=== PATIENT | female | born 1995 | race Caucasian/White ===

== ENCOUNTER 2017-02-12 18:49 | Emergency (ER) | payer OTHER ==
[~2017-02-12] VITALS: Ht 157.5 cm; Wt 65.8 kg
[2017-02-12 18:49] VITALS: BP 112/66
[2017-02-12] MEDS ORDERED: PREN1PAK PO (19:21)
[2017-02-12 22:21] LABS: BASO % 0.5 % (0.0-1.0); EOS % 0.9 % (0.0-3.0); LARGE UNSTAINED CELL # 0.1 K/mm3 (0.0-0.4); LYMPH # 2.1 K/mm3 (1.5-6.5); LYMPH % 40.7 % (24.0-44.0); MEAN CORPUSCULAR HGB CONC 33.8 g/dl (32.0-36.5); MEAN CORPUSCULAR VOLUME 82.8 fl (80.0-96.0); MONO # 0.2 K/mm3 (0.0-0.8); MONO % 3.6 % (0.0-5.0); NEUTROPHILS # 2.7 K/mm3 (1.8-7.7); NEUTROPHILS % 52.3 % (36.0-66.0); PLATELET COUNT, AUTOMATED 236 k/mm3 (150-450); RED CELL DISTRIBUTION WIDTH 12.7 % (11.5-14.5); WHITE BLOOD COUNT 5.1 K/mm3 (4.0-10.0)
--- NOTE | 2017-02-12 23:40 | REPUSA ---
CLINICAL HISTORY: Spotting. TECHNIQUE: Transabdominal and endovaginal ultrasound of the pelvis was performed. FINDINGS: The uterus is anteverted. Gestational sac measures 0.56 cm mean diameter, corresponding to gestational age of 5 weeks and 2 day s. Yolk sac is seen. There is no pole or heart beat. Both ovaries are identified without adnexal mass or pelvic fluid collection. IMPRESSION: Findings most compatible with early IUP without pole or heart beat. Follow up stud y is recommended in 4-7 days.
== END 2017-02-13 00:16 | disposition home or self-care (01) ==
LOC: M ED 18:49
DX: O20.0 Threatened abortion (principal); Z3A.01 Less than 8 weeks gestation of pregnancy

== ENCOUNTER 2017-12-09 05:14 | Inpatient (IN) | payer OTHER ==
[2017-12-09] MEDS: BICITRA 30ML SOLN UDC PO (06:00)
[2017-12-09] MEDS: LR 1,000 ML IV ×2 (06:00→08:39)
[2017-12-09 06:11] LABS: HEMATOCRIT 32.6 % (36.0-47.0); HEMOGLOBIN 9.9 g/dl (12.0-15.5); MEAN CORPUSCULAR HEMOGLOBIN 21.3 pg (27.0-33.0); MEAN CORPUSCULAR HGB CONC 30.4 g/dl (32.0-36.5); MEAN CORPUSCULAR VOLUME 70.3 fl (80.0-96.0); PLATELET COUNT, AUTOMATED 178 10^3/uL (150-450); RED BLOOD COUNT 4.64 10^6/uL (4.00-5.40); RED CELL DISTRIBUTION WIDTH 16.4 % (11.5-14.5); WHITE BLOOD COUNT 9.8 10^3/uL (4.0-10.0)
[2017-12-09] MEDS ORDERED: OXYTOCIN INJ 10 UNITS/ML VIAL (J2590) As Ordered ×2 (07:10)
[2017-12-09] MEDS ORDERED: MORPHINE PRES-FREE INJ 10 MG/10 ML VIAL (J2274) As Ordered (07:12)
[2017-12-09] MEDS ORDERED: ATROPINE SULF 0.4 MG/ML 1ML VIAL (J0461) As Ordered (07:50)
[2017-12-09] MEDS ORDERED: ONDANSETRON 4MG/2ML VIAL (J2405) As Ordered (07:56)
[2017-12-09] MEDS ORDERED: ePHEDrine SULFATE 25 MG/5 ML(5MG/ML) SYRINGE As Ordered (07:56)
[2017-12-09] MEDS ORDERED: PHENYLephrine HCL 500 MCG/5 ML (100MCG/ML) SYRINGE (J2370) As Ordered (07:58)
[2017-12-09] MEDS ORDERED: KETOROLAC 60 MG/2 ML VIAL (J1885) As Ordered (08:17)
[2017-12-09] MEDS ORDERED: ONDANSETRON 4MG/2ML VIAL (J2405) IV ×2 (08:45→09:15)
[2017-12-09] MEDS ORDERED: PROMETHAZINE 25 MG TAB PO (08:45)
[2017-12-09] MEDS ORDERED: PERCOCET 5MG/325MG TAB PO ×2 (08:45→09:15)
[2017-12-09] MEDS ORDERED: METHYLERGONOVINE MALEATE 0.2 MG/ML VIAL (J2210) IM (08:45)
[2017-12-09] MEDS: PRENATAL VITAMINS CHEWABLE TABLET PO (09:00)
[2017-12-09] MEDS ORDERED: fentaNYL 100 MCG/2 ML INJECTION (J3010) IV (09:15)
[2017-12-09] MEDS: PERCOCET 5MG/325MG TAB PO (12:35)
[2017-12-09] MEDS: KETOROLAC 30 MG/ML VIAL (J1885) IV ×2 (14:14→20:18)
[2017-12-09] MEDS: DOCUSATE SODIUM 100 MG CAP PO (20:18)
[2017-12-10] MEDS: DOCUSATE SODIUM 100 MG CAP PO ×3 (00:52→22:02)
[2017-12-10] MEDS: KETOROLAC 30 MG/ML VIAL (J1885) IV (02:03)
[2017-12-10 07:35] LABS: HEMATOCRIT 28.4 % (36.0-47.0); HEMOGLOBIN 8.4 g/dl (12.0-15.5); MEAN CORPUSCULAR HEMOGLOBIN 21.2 pg (27.0-33.0); MEAN CORPUSCULAR HGB CONC 29.6 g/dl (32.0-36.5); MEAN CORPUSCULAR VOLUME 71.7 fl (80.0-96.0); PLATELET COUNT, AUTOMATED 150 10^3/uL (150-450); RED BLOOD COUNT 3.96 10^6/uL (4.00-5.40); RED CELL DISTRIBUTION WIDTH 16.6 % (11.5-14.5); WHITE BLOOD COUNT 9.5 10^3/uL (4.0-10.0)
[2017-12-10] MEDS: RHOGAM 300 MCG (1500 IU) INJ (J2790) IM (07:36)
[2017-12-10] MEDS: MEASLES,MUMPS,RUBELLA VACCINE INJ (MMR-II) (90707) SC (07:36)
[2017-12-10] MEDS: PRENATAL VITAMINS CHEWABLE TABLET PO (08:50)
[2017-12-10] MEDS: IBUPROFEN 800 MG TAB PO ×2 (09:18→17:44)
[2017-12-11] MEDS: IBUPROFEN 800 MG TAB PO ×2 (01:31→09:40)
[2017-12-11] MEDS: PRENATAL VITAMINS CHEWABLE TABLET PO (08:10)
[2017-12-11] MEDS: DOCUSATE SODIUM 100 MG CAP PO (08:10)
== END 2017-12-11 11:40 | disposition home or self-care (01) | DRG 766 ==
LOC: M LDI 05:14 → M OBS 10:04
PROVIDERS: Obstetrics & Gynecology
PROC: 10D00Z1 Extraction of Products of Conception, Low, Open Approach (ICD-10-PCS; principal; 2017-12-09 07:30)
DX: O82 Encounter for cesarean delivery without indication (principal); Z37.0 Single live birth; Z3A.39 39 weeks gestation of pregnancy